=== PATIENT | female | born 1935 | race Caucasian/White ===

== ENCOUNTER → 2016-05-30 | Outpatient (CLI) | payer MEDICARE ==
[~2016-05-30] MED LIST: AMLO2.5T PO; ASPI-999 PO; CA C1TAB75 PO; FISH1CAP15 PO; LOSA1TAB69 PO
--- NOTE | 2016-05-30 16:38 | Diagnostic Imaging Report ---
INDICATION: Digital mammogram bilateral screening. This study was compared to the prior exams of 05/27/15, 05/20/14 and 03/24/13. At this time, there are no current complaints. The current study was also evaluated with a Computer Aided Detection (CAD) system. FINDINGS: The fibroglandular tissue in both breasts is heterogeneously dense. This does limit the sensitivity of this exam. Overall, there does not appear to have been any significant change when compared to the prior study. No primary or secondary sign of malignancy is noted. IMPRESSION: There is no radiographic evidence for malignancy. ACR BI-RADS Category 1: Negative. Result letter will be mailed to the patient. Note: At least 10% of breast cancer is not imaged by mammography. Dictated by: Dictated on workstation # [id number]
== END ==
LOC: RAD 09:22
PROVIDERS: ATTEND Internal Medicine
DX: Z12.31 Encounter for screening mammogram for malignant neoplasm of breast (principal)

== ENCOUNTER → 2017-06-11 | Outpatient (CLI) | payer MEDICARE ==
[~2017-06-11] MED LIST changes: +LOSA1TAB20 PO; -LOSA1TAB69 PO
--- NOTE | 2017-06-12 08:12 | Diagnostic Imaging Report ---
Digital mammogram bilateral screening This study was compared to the prior exams of 05/30/2016, 05/27/2015, and 05/20/2014. At this time, there are no current complaints. The current study was also evaluated with a Computer Aided Detection (CAD) system. FINDINGS: The fibroglandular tissue in both breasts is heterogeneously dense. This does limit the sensitivity of this exam. Overall, there does not appear to have been any significant change when compared to the prior study. No primary or secondary sign of malignancy is noted. IMPRESSION: There is no radiographic evidence for malignancy. ACR BI-RADS Category 1: Negative. Result letter will be mailed to the patient. Note: At least 10% of breast cancer is not imaged by mammography. Dictated by: Dictated on workstation # [id number]
== END ==
LOC: RAD 10:15
PROVIDERS: ATTEND Nurse Practitioner
DX: Z12.31 Encounter for screening mammogram for malignant neoplasm of breast (principal)
CPT/HCPCS: 77067

== ENCOUNTER → 2017-09-25 | Outpatient (CLI) | payer MEDICARE ==
--- NOTE | 2017-09-25 19:17 | Diagnostic Imaging Report ---
INDICATION: Right knee pain. FINDINGS: Three views of the right knee show mild joint space narrowing in the medial and lateral tibiofemoral joint spaces. Articular surfaces are smooth. There is no fracture or joint effusion. IMPRESSION: Mild joint space narrowing in the medial and lateral tibiofemoral joint spaces. Dictated by: Dictated on workstation # [id number]
== END ==
LOC: RAD 16:38
PROVIDERS: ATTEND Nurse Practitioner
DX: M25.861 Other specified joint disorders, right knee (principal); W19.XXXA Unspecified fall, initial encounter; Y92.009 Unspecified place in unspecified non-institutional (private) residence as the place of occurrence of the external cause
CPT/HCPCS: 73562

== ENCOUNTER → 2018-06-16 | Outpatient (CLI) | payer MEDICARE ==
[~2018-06-16] MED LIST changes: -AMLO2.5T PO; +AMLO2.5T4 PO
--- NOTE | 2018-06-16 13:03 | Diagnostic Imaging Report ---
INDICATION: Routine screening. COMPARISON: 06/11/2017 and 05/30/2016. TECHNIQUE: 2D and 3D bilateral screening mammography was performed with CAD. FINDINGS: Scattered fibroglandular densities are identified bilaterally. The parenchymal pattern is stable. No mass or malignant appearing microcalcifications are seen. The axillae are unremarkable. IMPRESSION: No mammographic features suspicious for malignancy are identified. ACR BI-RADS Category 1: Negative. Result letter will be mailed to the patient. Note: At least 10% of breast cancer is not imaged by mammography. Dictated by: Dictated on workstation # [id number]
== END ==
LOC: RAD 10:12
PROVIDERS: ATTEND Nurse Practitioner
DX: Z12.31 Encounter for screening mammogram for malignant neoplasm of breast (principal)
CPT/HCPCS: 77067

== ENCOUNTER → 2018-09-02 | Outpatient (CLI) | payer MEDICARE ==
--- NOTE | 2018-09-02 12:49 | Diagnostic Imaging Report ---
INDICATION: Painful cough. PA and lateral views of the chest were obtained. Comparison made with prior examination from 07/13/2010. FINDINGS: Heart size is normal. There is a patchy right base infiltrate. There is no pleural effusion or pneumothorax. The mediastinum is unremarkable. IMPRESSION: Patchy right base infiltrate. Early pneumonia cannot be excluded. Recommend clinical correlation and followup radiographs as warranted. Dictated by: Dictated on workstation # [id number]
== END ==
LOC: RAD 10:08
PROVIDERS: ATTEND Physician Assistant
DX: J18.9 Pneumonia, unspecified organism (principal)
CPT/HCPCS: 71046

== ENCOUNTER → 2018-09-08 | Outpatient (CLI) | payer MEDICARE ==
--- NOTE | 2018-09-08 14:12 | Diagnostic Imaging Report ---
INDICATION: RLL PNEUMONIA COMPARISON: 09/02/2018. FINDINGS: Frontal and lateral views of the chest demonstrate normal heart size and pulmonary vascularity. The lungs are hyperinflated, but are otherwise clear today's exam. There are no signs of infiltrate, pleural effusions or pneumothoraces. The visualized osseous structures show no acute abnormalities. IMPRESSION: 1. No acute process. No signs of infiltrates, effusions or pneumothoraces. 2. Background COPD changes. Dictated by: Dictated on workstation # [id number]
== END ==
LOC: RAD 13:16
PROVIDERS: ATTEND Physician Assistant
DX: J18.1 Lobar pneumonia, unspecified organism (principal)
CPT/HCPCS: 71046

== ENCOUNTER → 2018-09-17 | Outpatient (CLI) | payer MEDICARE | LOC: RT 16:22 | PROVIDERS: ATTEND Physician Assistant | DX: J44.9 Chronic obstructive pulmonary disease, unspecified (principal) | CPT/HCPCS: 94060; 94726; 94729 ==

== ENCOUNTER → 2019-06-17 | Outpatient (CLI) | payer MEDICARE ==
--- NOTE | 2019-06-17 11:43 | Diagnostic Imaging Report ---
INDICATION: Screening. The current study was also evaluated with a Computer Aided Detection (CAD) system. 3-D Tomographic imaging was also performed. COMPARISON: Comparison made with prior examinations from 06/16/2018, 06/11/2017, and 05/30/2016. FINDINGS: There are scattered fibroglandular densities bilaterally. There are vascular and benign-type calcifications. There is no new dominant mass, spiculated lesion, or suspicious calcination identified. The skin, nipples, and axillae are unremarkable. IMPRESSION: Benign. ACR BI-RADS Category 2: Benign findings. Result letter will be mailed to the patient. Note: At least 10% of breast cancer is not imaged by mammography. Dictated by: Dictated on workstation # [id number]
== END ==
LOC: RAD 09:32
PROVIDERS: ATTEND Nurse Practitioner
DX: Z12.31 Encounter for screening mammogram for malignant neoplasm of breast (principal)
CPT/HCPCS: 77067

== ENCOUNTER 2020-05-30 11:00 | Outpatient (RCR) | payer MEDICARE | END 2020-08-28 | disposition home or self-care (01) | LOC: CARD 11:00 | PROVIDERS: ATTEND Internal Medicine | DX: R00.2 Palpitations (principal) | CPT/HCPCS: 93225; 93226 ==

== ENCOUNTER → 2020-06-29 | Outpatient (CLI) | payer MEDICARE ==
--- NOTE | 2020-06-29 13:33 | Diagnostic Imaging Report ---
INDICATION: Routine screening. Comparison is made with prior mammogram 06/17/2019 and 06/16/2018. 2-D and 3-D bilateral screening mammography was performed with a Computer Aided Detection (CAD) system. 3-D tomosynthesis was also performed and reviewed. FINDINGS: Both breasts are heterogeneously dense, limiting the sensitivity of mammography. Vascular and benign parenchymal calcifications are again noted. No mass or malignant appearing microcalcifications are seen. Axillae are unremarkable. IMPRESSION: No mammographic features suspicious for malignancy are identified. ACR BI-RADS Category 2: Benign findings. Result letter will be mailed to the patient. Note: At least 10% of breast cancer is not imaged by mammography. Dictated by: Dictated on workstation # [id number]
== END ==
LOC: RAD 10:15
PROVIDERS: ATTEND Internal Medicine
DX: Z12.31 Encounter for screening mammogram for malignant neoplasm of breast (principal)
CPT/HCPCS: 77063; 77067

== ENCOUNTER → 2020-08-08 | Outpatient (CLI) | payer MEDICARE | LOC: CARD 11:23 | PROVIDERS: ATTEND Internal Medicine Cardiovascular Disease | DX: I34.0 Nonrheumatic mitral (valve) insufficiency (principal); I11.9 Hypertensive heart disease without heart failure | CPT/HCPCS: 93306 ==

== ENCOUNTER → 2020-09-12 | Outpatient (CLI) | payer MEDICARE ==
[~2020-09-12] VITALS: Ht 165 cm; Wt 57.0 kg
[~2020-09-12] MED LIST changes: +CATHETER FLUSH 10 ML SYR IV PRN
[2020-09-12 09:19] VITALS: BP 171/67
--- NOTE | 2020-09-12 11:06 | Cardiology Stress Test Report ---
Stress Test Report Date of Procedure/Referring: Date of Procedure: September 12, 2020 PCP Van Berg MD Admitting Physician Evan Degroot MD Indications: HTN Baseline Heart Rate: 58 Baseline Blood Pressure: Blood Pressure Systolic: 171 Blood Pressure Diastolic: 67 Vital Signs Date Time Temp Pulse Resp B/P (MAP) Pulse Ox O2 Delivery O2 Flow Rate FiO2 09/12/20 09:19 67 171/67 (101) Baseline Vital Signs Vital Signs Date Time Temp Pulse Resp B/P (MAP) Pulse Ox O2 Delivery O2 Flow Rate FiO2 09/12/20 09:19 67 171/67 (101) Baseline EKG: Baseline EKG: NSR Summary: After explaining the procedure and details to the patient, she signed the consent and was brought to the stress nuclear laboratory. Patient exercised on standard Jimi protocol, EKG, heart rate and blood pressure were monitored continuously, resting and stress doses of radio tracer were injected, imaging was acquired and reviewed in the short axis, horizontal long axis and vertical long axis views Patient was able to exercise for a total of 4 minutes on Jimi protocol, METs 5.8 Maximum heart rate 119 Maximum blood pressure 182/94 Stress EKG, Minimal nondiagnostic changes Recovery EKG, Return to baseline TID: 1.06 SSS: 2 SDS: 2 EF: 75 Conclusion: 1. Fair exercise tolerance for a total of 4 minutes on standard Jimi protocol, 5.8 METS achieving 87% of maximal expected heart rate 2. Hypertensive response to exercise with peak blood pressure 182/94 3. Minimal nondiagnostic EKG changes with exercise return to baseline during recovery 4. No significant ischemia or infarction on SPECT images 5. Normal left ventricular size, EF 75% VAN BERG MD September 12, 2020 11:06
== END ==
LOC: CARD 07:25
PROVIDERS: ATTEND Internal Medicine Cardiovascular Disease
DX: I10 Essential (primary) hypertension (principal); R00.2 Palpitations
CPT/HCPCS: 78452; 93017; A9502

== ENCOUNTER 2020-09-22 17:43 | Emergency (ER) | payer MEDICARE ==
[~2020-09-22] VITALS: Ht 165 cm; Wt 56.8 kg
[~2020-09-22 17:43] MED LIST changes: -CATHETER FLUSH 10 ML SYR IV PRN
--- NOTE | 2020-09-22 18:16 | ED Neck-Back Pain/Injury ---
General Chief Complaint: Head/Cervical Problems Stated Complaint: PAIN IN NECK Nursing Triage Note: AMB TO ED WITH C/O NECK PAIN SINCE SATURDAY NO INJURY. Nursing Sepsis Screen: No Definite Risk Source of Information: Patient Exam Limitations: No Limitations (VIVIAN LEE MD) History of Present Illness Date Seen by Provider: September 22, 2020 Time Seen by Provider: 17:55 Initial Comments This 85-year-old woman presents to the emergency room with right lateral neck pain that started after gardening. She denies any traumatic injury or strain. She took some Tylenol without much improvement and has tried a heating pad. Pain is exacerbated by movement and palpation. It seems to spasm at times. She denies any paresthesias or weakness of the arms or legs. She denies any bladder control problems. (VIVIAN LEE MD) Allergies and Home Medications Allergies Coded Allergies: No Known Drug Allergies (Unverified , 02/24/10) Home Medications Amlodipine Besylate 2.5 Mg Tablet, 2.5 MG PO DAILY, (Reported) Losartan/Hydrochlorothiazide 1 Each Tablet, 1 EACH PO DAILY, (Reported) Patient Home Medication List Home Medication List Reviewed: Yes (VIVIAN LEE MD) Review of Systems Constitutional: no symptoms reported EENTM: no symptoms reported Respiratory: no symptoms reported Cardiovascular: no symptoms reported Gastrointestinal: no symptoms reported Genitourinary: no symptoms reported : No Musculoskeletal: see HPI Skin: no symptoms reported Psychiatric/Neurological: No Symptoms Reported (VIVIAN LEE MD) Past Gpqtsel-Mzafts-Anybgs Hx Past Med/Social Hx: Reviewed and Corrections made (VIVIAN LEE MD) Patient Social History Alcohol Use: Denies Use Number of Drinks Today: Alcohol Beverage of Choice: Wine Smoking Status: Never a Smoker 2nd Hand Smoke Exposure: No Recent Infectious Disease Expo: No Recent Hopitalizations: No (VIVIAN LEE MD) Immunizations Up To Date Tetanus Booster (TDap): More than 5yrs Date of Pneumonia Vaccine: Jan 10, 2012 (VIVIAN LEE MD) Seasonal Allergies Seasonal Allergies: No (VIVIAN LEE MD) Past Medical History Surgeries: Yes Hysterectomy Respiratory: No Cardiac: Yes Hypertension Neurological: No Reproductive Disorders: No Genitourinary: No Gastrointestinal: No Musculoskeletal: No Endocrine: No HEENT: No Cancer: No Psychosocial: No (VIVIAN LEE MD) Physical Exam Vital Signs Vital Signs - First Documented 09/22/20 17:47 Temp 36.1 Pulse 67 Resp 18 B/P (MAP) 173/79 (110) Pulse Ox 97 (RUPESH LAWRENCE) Vital Signs Capillary Refill : Less Than 3 Seconds (VIVIAN LEE MD) Height, Weight, BMI Height: 5'5.00" Weight: 130lbs. oz. 58.676436wa; 20.00 BMI Method:Stated General Appearance: No Apparent Distress, WD/WN, Thin HEENT: PERRL/EOMI, Normal ENT Inspection Neck: Normal Inspection, Tender Lateral (Tender in the mid lateral neck just posterior to the sternocleidomastoid muscle. No cervical spinal tenderness. Decreased range of motion and pain with rotation.) Cardiovascular: No Murmur, Normal Peripheral Pulses, Other (Irregularly irregular, bigeminy on the monitor) Respiratory: Lungs Clear, Normal Breath Sounds, No Accessory Muscle Use Extremity: Normal Inspection, No Pedal Edema Neurologic/Psychiatric: Alert, Oriented x3, No Motor/Sensory Deficits, Normal Mood/Affect, rnp II-XII Norm as Tested Skin: Normal Color, Warm/Dry (VIVIAN LEE MD) Progress/Results/Core Measures Results/Orders Medications Given in ED Current Medications Medications Dose Ordered Sig/Steff Route Start Time Stop Time Status Last Admin Dose Admin Ketorolac Tromethamine 15 mg ONCE ONCE IM 09/22/20 18:15 09/22/20 18:16 DC 09/22/20 18:33 15 MG Orphenadrine Citrate 30 mg ONCE ONCE IM 09/22/20 18:15 09/22/20 18:16 DC 09/22/20 18:33 30 MG (RUPESH LAWRENCE) Vital Signs/I&O 09/22/20 17:47 Temp 36.1 Pulse 67 Resp 18 B/P (MAP) 173/79 (110) Pulse Ox 97 (RUPESH LAWRENCE) Blood Pressure Mean: 110 Progress Progress Note : Time: 18:15 Progress Note Patient seen and examined. Toradol and Norflex ordered. Care transition to Dr. Lawrence at this time. (VIVIAN LEE MD) Progress Note : Time: 18:57 Progress Note Assumed care of the patient at shift change. She has received her dose of Toradol and Norflex and is having some improvement in her symptoms. We did prescribe a conservative care treatment plan for torticollis as well as return precautions and encouraged her to follow-up in 7 to 10 days with her primary care doctor for reevaluation. We will give her number for physical therapy. (RUPESH LAWRENCE) Departure Impression Primary Impression: Neck pain Disposition: 01 HOME, SELF-CARE Condition: Stable Departure-Patient Inst. Decision time for Depature: 18:57 (RUPESH LAWRENCE) Referrals: CAREY DORANTES MD (PCP/Family) Primary Care Physician Patient Instructions: Neck Pain Exercises, Torticollis (DC) Add. Discharge Instructions: I suspect that you have muscle spasms of the small muscles that support your neck and that is the source of your pain. Typically this will resolve in 1 to 2 weeks with some conservative management using Tylenol, NSAIDs and muscle relaxants as well as heat. Make an appointment in 7 to 10 days to follow-up with your primary care doctor to make sure your symptoms are improving. If you feel you need some extra help then you may call physical therapy at [phone] and request a no upfront cost evaluation. Use topical creams such as icy hot, Biofreeze, capsaicin oil or other similar creams as well as a heating pad to provide relief of the pain in your neck. Tylenol 1000 mg every 8 hours as necessary for pain. Ibuprofen 600 mg, 3 tablets every 8 hours on a scheduled basis or you can use naproxen/Aleve 2 tablets twice a day on a scheduled basis. Flexeril/cyclobenzaprine 1/2 to 1 tablet every 8 hours as necessary to relieve muscle spasms. This may cause drowsiness so you should not drive or operate heavy machinery while using it. If you begin to have new or worrisome symptoms then you may return to the ER or follow-up with your primary care doctor for further evaluation. All discharge instructions reviewed with patient and/or family. Voiced understanding. Scripts Cyclobenzaprine HCl (Cyclobenzaprine HCl) 10 Mg Tablet 5-10 MG PO Q8H PRN for SPASMS, #15 TAB 0 Refills Prov: RUPESH LAWRENCE 09/22/20 VIVIAN LEE MD September 22, 2020 18:16 RUPESH LAWRENCE September 22, 2020 19:01
[2020-09-22] MEDS: ORPHENADRINE 60 MG/2 ML (NORFLEX) AMP (ED ONLY) IM ONE (18:33)
[2020-09-22] MEDS: KETOROLAC 30 MG/ML VIAL IM ONE (18:33)
[2020-09-22] MEDS ORDERED: CYCL10TA9 PO (19:00)
[2020-09-22 19:01] VITALS: BP 156/74
== END 2020-09-22 19:03 | disposition home or self-care (01) ==
LOC: EDUNIT# 17:43 → ER 17:45
DX: M54.2 Cervicalgia (principal); I10 Essential (primary) hypertension
CPT/HCPCS: 99284

== ENCOUNTER → 2021-08-02 | Outpatient (CLI) | payer MEDICARE, OTHER ==
[~2021-08-02] MED LIST changes: +CYCL10TA25 PO
--- NOTE | 2021-08-02 12:19 | Diagnostic Imaging Report ---
INDICATION: Routine screening. COMPARISON: 06/29/2020 and 06/17/2019. TECHNIQUE: 2D and 3D bilateral screening mammography was performed with CAD. FINDINGS: Both breasts are heterogeneously dense, limiting the sensitivity of mammography. The parenchymal pattern is stable. No dominant mass or malignant-appearing microcalcifications are seen. There are benign parenchymal and vascular calcifications. The axillae are unremarkable. IMPRESSION: No mammographic features suspicious for malignancy are identified. ACR BI-RADS Category 2: Benign findings. Result letter will be mailed to the patient. Note: At least 10% of breast cancer is not imaged by mammography. Dictated by: Dictated on workstation # [id number]
== END ==
LOC: RAD 10:00
PROVIDERS: ATTEND Nurse Practitioner Family
DX: Z12.31 Encounter for screening mammogram for malignant neoplasm of breast (principal)
CPT/HCPCS: 77063; 77067

== ENCOUNTER 2021-10-15 09:17 | Emergency (ER) | payer MEDICARE, OTHER ==
[~2021-10-15] VITALS: Ht 165 cm; Wt 52.1 kg
[2021-10-15 10:02] LABS: CLARITY,URINE CLEAR; COLOR,URINE YELLOW; GLUCOSE, URINE (UA) NEGATIVE (NEGATIVE); KETONES,URINE TRACE (NEGATIVE); LEUKOCYTE ESTERASE ,URINE TRACE (NEGATIVE); NITRITE,URINE NEGATIVE (NEGATIVE); PH,URINE 5.5 (5-9); PROTEIN,URINE 1+ (NEGATIVE)
[2021-10-15] MEDS ORDERED: NS IV 500 ML 500 ML IV ONE (10:15)
--- NOTE | 2021-10-15 10:24 | ED GI ---
General Chief Complaint: Abdominal/GI Problems Stated Complaint: DIARRHEA - ABD PAIN - UNABLE TO SLEEP OR EAT Nursing Triage Note: pt ambulatory to room. pt states she has had diarrhea and stomach cramping since saturday morning. pt states she hasnt been eating much because she has to go straight to the bathroom afterward. pt states she feels like she has food poisoning because this started after she ate fish at the [employer] Source of Information: Patient Exam Limitations: No Limitations History of Present Illness Date Seen by Provider: Oct 15, 2021 Time Seen by Provider: 09:57 Initial Comments Patient to the ER by private conveyance with his significant other chief complaint that for the past 2-3 days she has been having diarrhea since the wee hours of Saturday morning. No blood in the stool. No history of diverticulitis. No history of abdominal surgeries. No abdominal pain nausea vomiting fevers or chills. No myalgias or body aches. She says she ate fish at the [employer] on and then her symptoms started. Has been using Pepto-Bismol and put off coming in because she thought it was getting better. Today she had no appetite, and felt she better come in to be checked out. Allergies and Home Medications Allergies Coded Allergies: No Known Drug Allergies (Unverified , 02/24/10) Patient Home Medication List Home Medication List Reviewed: Yes Amlodipine Besylate (Amlodipine Besylate) 2.5 Mg Tablet, 2.5 MG PO DAILY, (Reported) Entered as Reported by: DEREK VINCENT on 01/18/15901 Aspirin (Aspirin) 81 Mg Tab.chew, 81 MG PO, (Reported) Entered as Reported by: DEREK VINCENT on 01/18/15902 Ca Carbonate/Vitamin D3/Vit K (Calcium + D Soft Chewable Tab) 1 Each Tab.chew, 1 EACH PO, (Reported) Entered as Reported by: DEREK VINCENT on 01/18/15 09 Cyclobenzaprine HCl (Cyclobenzaprine HCl) 10 Mg Tablet, 5-10 MG PO Q8H PRN for SPASMS Prescribed by: RUPESH NEWTON on 09/22/20 1900 Fish Oil/Dha/Epa (Fish Oil 1,200 mg Fish Oil) 1 Each Capsule, 1 EACH PO, (Reported) Entered as Reported by: DEREK VINCENT on 01/18/15902 Losartan/Hydrochlorothiazide (Losartan-Hctz 50-12.5 mg Tab) 1 Each Tablet, 1 EACH PO DAILY, (Reported) Entered as Reported by: DEREK VINCENT on 01/18/15900 Review of Systems Review of Systems Constitutional: No chills, No fever, No malaise; weakness EENTM: No Blurred Vision, No Double Vision Respiratory: Denies Cough, Denies Shortness of Air Cardiovascular: Denies Chest Pain, Denies Lightheadedness Gastrointestinal: Denies Constipated; Diarrhea; Denies Nausea; Poor Appetite, Poor Fluid Intake Genitourinary: Denies Discharge, Denies Drainage Musculoskeletal: No back pain, No joint pain Skin: No pruritus, No rash Psychiatric/Neurological: Denies Headache, Denies Numbness All Other Systems Reviewed Negative Unless Noted: Yes Past Tbyvghl-Twrvne-Oughfq Hx Patient Social History Tobacco Use?: No Use of E-Cig and/or Vaping dev: No Substance use?: No Immunizations Up To Date Tetanus Booster (TDap): More than 5yrs Seasonal Allergies Seasonal Allergies: No Past Medical History Surgeries: Yes Hysterectomy Respiratory: No Cardiac: Yes Hypertension Neurological: No Reproductive Disorders: No Genitourinary: No Gastrointestinal: No Musculoskeletal: No Endocrine: No HEENT: No Cancer: No Psychosocial: No Physical Exam Vital Signs Vital Signs - First Documented 10/15/21 09:44 Temp 35.8 Pulse 59 Resp 16 B/P (MAP) 152/72 (98) Pulse Ox 97 Capillary Refill : Height/Weight/BMI Height: 5'5.00" Weight: 130lbs. oz. 58.753561hq; 19.00 BMI Method:Stated General Appearance: WD/WN, no apparent distress HEENT: PERRL/EOMI, pharynx normal Neck: full range of motion, normal inspection Respiratory: lungs clear, normal breath sounds, no respiratory distress, no accessory muscle use Cardiovascular: normal peripheral pulses, regular rate, rhythm Peripheral Pulses: 2+ Radial Pulses (R), 2+ Radial Pulses (L) Gastrointestinal: non tender, soft, no organomegaly, abnormal bowel sounds (Hyperactive); No tenderness (No mesenteric signs, soft) Extremities: normal range of motion, normal capillary refill Neurologic/Psychiatric: alert, normal mood/affect, oriented x 3 Skin: normal color, warm/dry Progress/Results/Core Measures Results/Orders Lab Results Laboratory Tests Test 10/15/21 09:57 10/15/21 10:15 Range/Units Urine Color YELLOW Urine Clarity CLEAR Urine pH 5.5 5-9 Urine Specific [place] 1.025 H 1.016-1.022 Urine Protein 1+ H NEGATIVE Urine Glucose (UA) NEGATIVE NEGATIVE Urine Ketones TRACE H NEGATIVE Urine Nitrite NEGATIVE NEGATIVE Urine Bilirubin NEGATIVE NEGATIVE Urine Urobilinogen 0.2 < = 1.0 MG/DL Urine Leukocyte Esterase TRACE H NEGATIVE Urine RBC (Auto) TRACE-I H NEGATIVE Urine RBC 0-2 /HPF Urine WBC 2-5 /HPF Urine Crystals NONE /LPF Urine Bacteria FEW H /HPF Urine Casts PRESENT /LPF Urine Hyaline Casts 0-2 H /LPF Urine Mucus SMALL H /LPF Urine Culture Indicated YES White Blood Count 6.2 4.3-11.0 10^3/uL Red Blood Count 4.52 3.80-5.11 10^6/uL Hemoglobin 13.6 11.5-16.0 g/dL Hematocrit 41 35-52 % Mean Corpuscular Volume 91 80-99 fL Mean Corpuscular Hemoglobin 30 25-34 pg Mean Corpuscular Hemoglobin Concent 33 32-36 g/dL Red Cell Distribution Width 13.5 10.0-14.5 % Platelet Count 301 130-400 10^3/uL Mean Platelet Volume 10.5 9.0-12.2 fL Immature Granulocyte % (Auto) 0 % Neutrophils (%) (Auto) 55 42-75 % Lymphocytes (%) (Auto) 30 12-44 % Monocytes (%) (Auto) 13 H 0-12 % Eosinophils (%) (Auto) 2 0-10 % Basophils (%) (Auto) 0 0-10 % Neutrophils # (Auto) 3.5 1.8-7.8 10^3/uL Lymphocytes # (Auto) 1.9 1.0-4.0 10^3/uL Monocytes # (Auto) 0.8 0.0-1.0 10^3/uL Eosinophils # (Auto) 0.1 0.0-0.3 10^3/uL Basophils # (Auto) 0.0 0.0-0.1 10^3/uL Immature Granulocyte # (Auto) 0.0 0.0-0.1 10^3/uL Sodium Level 138 135-145 MMOL/L Potassium Level 3.6 3.6-5.0 MMOL/L Chloride Level 103 98-107 MMOL/L Carbon Dioxide Level 25 21-32 MMOL/L Anion Gap 10 5-14 MMOL/L Blood Urea Nitrogen 19 H 7-18 MG/DL Creatinine 1.05 0.60-1.30 MG/DL Estimat Glomerular Filtration Rate 52 BUN/Creatinine Ratio 18 Glucose Level 118 H 70-105 MG/DL Calcium Level 9.3 8.5-10.1 MG/DL Corrected Calcium 9.5 8.5-10.1 MG/DL Total Bilirubin 0.3 0.1-1.0 MG/DL Aspartate Amino Transf (AST/SGOT) 31 5-34 U/L Alanine Aminotransferase (ALT/SGPT) 21 0-55 U/L Alkaline Phosphatase 83 40-136 U/L C-Reactive Protein High Sensitivity 0.51 H 0.00-0.50 MG/DL Total Protein 7.1 6.4-8.2 GM/DL Albumin 3.7 3.2-4.5 GM/DL SARS-CoV-2 RNA (RT-PCR) Not Detected Not Detecte My Orders Orders - RUPESH NEWTON Ua Culture If Indicated (10/15/21 09:21) Ed Iv/Invasive Line Start (10/15/21 10:06) Ns Iv 500 Ml (Sodium Chloride 0.9%) (10/15/21 10:15) Cbc With Automated Diff (10/15/21 10:06) Comprehensive Metabolic Panel (10/15/21 10:06) Hs C Reactive Protein (10/15/21 10:06) Covid 19 Inhouse Test (10/15/21 10:16) Ct Abdomen/Pelvis Wo (10/15/21 10:17) Urine Culture (10/15/21 09:57) Medications Given in ED Current Medications Medications Dose Ordered Sig/Steff Route Start Time Stop Time Status Last Admin Dose Admin Sodium Chloride 500 ml @ 0 mls/hr Q0M ONCE IV 10/15/21 10:15 10/15/21 10:16 DC 10/15/21 10:16 0 MLS/HR Vital Signs/I&O 10/15/21 09:44 Temp 35.8 Pulse 59 Resp 16 B/P (MAP) 152/72 (98) Pulse Ox 97 Blood Pressure Mean: 98 Progress Progress Note : Time: 10:23 Progress Note We will swab her for COVID think about a viral gastroenteritis versus toxin. To consider other differentials we will get a CT. Because of the contrast shortage and her relative apparent dehydration we will hold off on any contrast. We will give her 500 cc normal saline bolus. We will check basic labs. Aseptic vital signs with a nonsurgical abdomen. Diagnostic Imaging Diagonstic Imaging: CT Plain Films/CT/US/NM/MRI: abdomen, pelvis Comments [facility] [place], [place] NAME: IRINA HAQ [facility] REC#: [id number] PT STATUS: REG ER : 1935 PHYSICIAN: RUPESH NEWTON MD ADMIT DATE: 10/15/21/ER Signed Date of Exam:10/15/21 CT ABDOMEN/PELVIS WO PROCEDURE: CT abdomen and pelvis without contrast. TECHNIQUE: Multiple contiguous axial images were obtained through the abdomen and pelvis without the use of intravenous contrast. Auto Exposure Controls were utilized during the CT exam to meet ALARA standards for radiation dose reduction. DATE: October 15, 2021. COMPARISON: None. INDICATION: 86-year-old female, diarrhea. Abdominal pain. FINDINGS: There are limitations for evaluation of the abdominal organs, neoplastic processes, abscess, and limited evaluation of the vasculature relating to the lack of intravenous contrast. There are predominantly linear opacities in the right middle lobe, right lower lobe, and left lower lobe most compatible with scarring and/or atelectasis. The heart is not enlarged. There is no pericardial effusion. The liver is unremarkable in size and contour. The gallbladder is unremarkable. There is no intrahepatic or extrahepatic bile duct dilation. The main pancreatic duct is not abnormally dilated. Limited noncontrast assessment of the pancreatic parenchyma is unremarkable. Spleen is normal in size. The adrenal glands are unremarkable. Limited noncontrast assessment of the renal parenchyma is unremarkable. There is no identified renal or ureteral stone. The urinary bladder is unremarkable. The intestinal tract is not distended. There is no identified free intraperitoneal air. There is no drainable fluid collection. There is no sizable volume free fluid in the abdomen or pelvis. There are atherosclerotic calcifications. There is no identified abnormally enlarged lymph node in the abdomen or pelvis meeting CT size criteria for adenopathy. There is chondrocalcinosis. There are multilevel degenerative changes of the spine. There is scoliosis. There is a lucent lesion in the L2 vertebral body most likely reflecting a hemangioma. IMPRESSION: CT ABDOMEN AND PELVIS. 1. No identified acute abnormality in the abdomen or pelvis. Dictated by: Dictated on workstation # [id number] Dict: 10/15/21 1140 Trans: 10/15/21 1151 [facility] [id number] Interpreted by: PATRICIA WARD MD Electronically signed by: PATRICIA WARD MD 10/15/21 1151 Reviewed: Reviewed by Me Departure Impression Primary Impression: Gastroenteritis/colitis, infectious Disposition: 01 HOME, SELF-CARE Condition: Improved Departure-Patient Inst. Decision time for Depature: 12:38 Referrals: CAREY DORANTES MD (PCP/Family) Primary Care Physician Patient Instructions: Viral Gastroenteritis, Adult (DC), Diarrhea, Adult ED Add. Discharge Instructions: If you continue to have loose, watery stools then use Imodium/loperamide. Loperamide 2 tablets, 4 mg initially followed by 1 tablet every 4 hours afterwards that you are still having loose, watery stools. Ondansetron 1 tablet every 6 hours as needed for nausea or vomiting. Gas-X for bloating or cramping pain. Follow-up with your primary care doctor if this has not resolved in 10 days. Return to the ER for dehydration, intractable pain, or other worrisome symptoms. All discharge instructions reviewed with patient and/or family. Voiced understanding. Scripts Ondansetron (Ondansetron Odt) 4 Mg Tab.rapdis 4 MG PO Q6H PRN for NAUSEA/VOMITING, #8 TAB 0 Refills Prov: RUPESH NEWTON 10/15/21 RUPESH NEWTON Oct 15, 2021 10:24
[2021-10-15 10:27] LABS: BASOPHILS % (AUTO) 0 % (0-10); EOSINOPHILS # (AUTO) 0.1 10^3/uL (0.0-0.3); EOSINOPHILS % (AUTO) 2 % (0-10); HEMATOCRIT 41 % (35-52); HEMOGLOBIN 13.6 g/dL (11.5-16.0); LYMPHOCYTES # (AUTO) 1.9 10^3/uL (1.0-4.0); LYMPHOCYTES % (AUTO) 30 % (12-44); MEAN CORPUSCULAR HEMOGLOBIN 30 pg (25-34); MEAN CORPUSCULAR HGB CONC 33 g/dL (32-36); MEAN CORPUSCULAR VOLUME 91 fL (80-99); MEAN PLATELET VOLUME 10.5 fL (9.0-12.2); MONOCYTES # (AUTO) 0.8 10^3/uL (0.0-1.0); MONOCYTES % (AUTO) 13 % (0-12); NEUTROPHILS # (AUTO) 3.5 10^3/uL (1.8-7.8); NEUTROPHILS % (AUTO) 55 % (42-75); PLATELET COUNT 301 10^3/uL (130-400); WHITE BLOOD COUNT 6.2 10^3/uL (4.3-11.0)
[2021-10-15 10:28] LABS: BACTERIA,URINE FEW /HPF; BILIRUBIN,URINE NEGATIVE (NEGATIVE); HYALINE CASTS, URINE 0-2 /LPF; RBC,URINE 0-2 /HPF
[2021-10-15 10:44] LABS: ALBUMIN 3.7 GM/DL (3.2-4.5); POTASSIUM 3.6 MMOL/L (3.6-5.0)
[2021-10-15 10:45] LABS: CALCIUM 9.3 MG/DL (8.5-10.1)
[2021-10-15 10:46] LABS: TOTAL PROTEIN 7.1 GM/DL (6.4-8.2)
[2021-10-15 10:48] LABS: BILIRUBIN,TOTAL 0.3 MG/DL (0.1-1.0)
[2021-10-15 10:50] LABS: CREATININE SERUM 1.05 MG/DL (0.60-1.30)
--- NOTE | 2021-10-15 11:49 | Diagnostic Imaging Report ---
PROCEDURE: CT abdomen and pelvis without contrast. TECHNIQUE: Multiple contiguous axial images were obtained through the abdomen and pelvis without the use of intravenous contrast. Auto Exposure Controls were utilized during the CT exam to meet ALARA standards for radiation dose reduction. DATE: October 15, 2021. COMPARISON: None. INDICATION: 86-year-old female, diarrhea. Abdominal pain. FINDINGS: There are limitations for evaluation of the abdominal organs, neoplastic processes, abscess, and limited evaluation of the vasculature relating to the lack of intravenous contrast. There are predominantly linear opacities in the right middle lobe, right lower lobe, and left lower lobe most compatible with scarring and/or atelectasis. The heart is not enlarged. There is no pericardial effusion. The liver is unremarkable in size and contour. The gallbladder is unremarkable. There is no intrahepatic or extrahepatic bile duct dilation. The main pancreatic duct is not abnormally dilated. Limited noncontrast assessment of the pancreatic parenchyma is unremarkable. Spleen is normal in size. The adrenal glands are unremarkable. Limited noncontrast assessment of the renal parenchyma is unremarkable. There is no identified renal or ureteral stone. The urinary bladder is unremarkable. The intestinal tract is not distended. There is no identified free intraperitoneal air. There is no drainable fluid collection. There is no sizable volume free fluid in the abdomen or pelvis. There are atherosclerotic calcifications. There is no identified abnormally enlarged lymph node in the abdomen or pelvis meeting CT size criteria for adenopathy. There is chondrocalcinosis. There are multilevel degenerative changes of the spine. There is scoliosis. There is a lucent lesion in the L2 vertebral body most likely reflecting a hemangioma. IMPRESSION: CT ABDOMEN AND PELVIS. 1. No identified acute abnormality in the abdomen or pelvis. Dictated by: Dictated on workstation # [id number]
[2021-10-15 11:58] VITALS: BP 137/76
[2021-10-15] MEDS ORDERED: ONDA4TAB11 PO (12:40)
== END 2021-10-15 12:51 | disposition home or self-care (01) ==
LOC: EDUNIT# 09:17 → ER 09:18
DX: A09 Infectious gastroenteritis and colitis, unspecified (principal); Z20.822 Contact with and (suspected) exposure to COVID-19
CPT/HCPCS: 36415; 74176; 80053; 81000; 85025; 86141; 87088; 87636

== ENCOUNTER → 2022-08-06 | Outpatient (CLI) | payer MEDICARE, OTHER ==
[~2022-08-06] MED LIST changes: +ONDA4TAB11 PO
--- NOTE | 2022-08-06 15:36 | Diagnostic Imaging Report ---
EXAMINATION: 3D bilateral screening mammogram with CAD. INDICATION: Screening. COMPARISON: This study was compared to the prior exams of 08/02/2021, 06/29/2020, and 06/17/2019. PERSONAL HISTORY: At this time, there are no current complaints. FINDINGS: The fibroglandular tissue in both breasts is heterogeneously dense. This does limit the sensitivity of this exam. When compared to the previous study, there does not appear to have been any significant change. There is no primary or secondary sign of malignancy noted. IMPRESSION: There is no evidence for malignancy. ACR BI-RADS Category 1: Negative. Result letter will be mailed to the patient. Note: At least 10% of breast cancer is not imaged by mammography. Dictated by: Dictated on workstation # [id number]
== END ==
LOC: RAD 10:49
PROVIDERS: ATTEND Physician Assistant
DX: Z12.31 Encounter for screening mammogram for malignant neoplasm of breast (principal)
CPT/HCPCS: 77063; 77067

== ENCOUNTER → 2022-08-10 | Outpatient (CLI) | payer MEDICARE, OTHER ==
[2022-08-10 10:16] LABS: BASOPHILS # (AUTO) 0.1 10^3/uL (0.0-0.1); BASOPHILS % (AUTO) 1 % (0-10); EOSINOPHILS # (AUTO) 0.2 10^3/uL (0.0-0.3); EOSINOPHILS % (AUTO) 2 % (0-10); HEMATOCRIT 38 % (35-52); HEMOGLOBIN 12.7 g/dL (11.5-16.0); LYMPHOCYTES # (AUTO) 2.5 10^3/uL (1.0-4.0); LYMPHOCYTES % (AUTO) 33 % (12-44); MEAN CORPUSCULAR HEMOGLOBIN 30 pg (25-34); MEAN CORPUSCULAR HGB CONC 34 g/dL (32-36); MEAN CORPUSCULAR VOLUME 90 fL (80-99); MEAN PLATELET VOLUME 10.3 fL (9.0-12.2); MONOCYTES # (AUTO) 0.7 10^3/uL (0.0-1.0); MONOCYTES % (AUTO) 10 % (0-12); NEUTROPHILS # (AUTO) 4.1 10^3/uL (1.8-7.8); NEUTROPHILS % (AUTO) 54 % (42-75); PLATELET COUNT 261 10^3/uL (130-400); WHITE BLOOD COUNT 7.5 10^3/uL (4.3-11.0)
[2022-08-10 10:24] LABS: ALBUMIN 3.9 GM/DL (3.2-4.5); POTASSIUM 3.7 MMOL/L (3.6-5.0)
[2022-08-10 10:27] LABS: TOTAL PROTEIN 7.3 GM/DL (6.4-8.2)
[2022-08-10 10:28] LABS: BILIRUBIN,TOTAL 0.6 MG/DL (0.1-1.0)
[2022-08-10 10:30] LABS: CREATININE SERUM 1.13 MG/DL (0.60-1.30)
== END ==
LOC: LAB 10:03
PROVIDERS: ATTEND Internal Medicine
DX: Z00.00 Encounter for general adult medical examination without abnormal findings (principal); E78.2 Mixed hyperlipidemia; I10 Essential (primary) hypertension
CPT/HCPCS: 36415; 80053; 80061; 84443; 85025

== ENCOUNTER → 2022-08-16 | Outpatient (CLI) | payer MEDICARE, OTHER ==
[2022-08-16 11:21] LABS: ABSOLUTE RETIC # 66 10e9/uL (24-90); BASOPHILS # (AUTO) 0.1 10^3/uL (0.0-0.1); BASOPHILS % (AUTO) 1 % (0-10); EOSINOPHILS # (AUTO) 0.2 10^3/uL (0.0-0.3); EOSINOPHILS % (AUTO) 2 % (0-10); HEMATOCRIT 39 % (35-52); HEMOGLOBIN 12.8 g/dL (11.5-16.0); LYMPHOCYTES % (AUTO) 32 % (12-44); MEAN CORPUSCULAR HEMOGLOBIN 30 pg (25-34); MEAN CORPUSCULAR HGB CONC 33 g/dL (32-36); MEAN CORPUSCULAR VOLUME 91 fL (80-99); MEAN PLATELET VOLUME 10.2 fL (9.0-12.2); MONOCYTES % (AUTO) 10 % (0-12); NEUTROPHILS # (AUTO) 5.3 10^3/uL (1.8-7.8); NEUTROPHILS % (AUTO) 55 % (42-75); PLATELET COUNT 273 10^3/uL (130-400); RETICULOCYTE % 1.55 % (0.50-2.40); WHITE BLOOD COUNT 9.6 10^3/uL (4.3-11.0)
[2022-08-16 12:34] LABS: EOSINOPHILS % (MANUAL) 3 %; LYMPHOCYTES % (MANUAL) 23 %; MONOCYTES % (MANUAL) 9 %; NEUTROPHILS % (MANUAL) 60 %; RBC MORPH NORMAL; REACTIVE LYMPHOCYTES 5 %
== END ==
LOC: LAB 11:04
PROVIDERS: ATTEND Internal Medicine
DX: Z00.00 Encounter for general adult medical examination without abnormal findings (principal); E78.2 Mixed hyperlipidemia; I10 Essential (primary) hypertension
CPT/HCPCS: 36415; 85007; 85027; 85045; 85055

== ENCOUNTER → 2022-11-20 | Outpatient (CLI) | payer MEDICARE, OTHER ==
--- NOTE | 2022-11-20 11:52 | Diagnostic Imaging Report ---
Indication: Bronchitis Study compared 09/08/2018 FINDINGS: Symmetrical pulmonary hyperexpansion with air trapping flattening of the diaphragms and expansion the retrosternal airspace is a progressive finding. There is some perihilar interstitial opacities likely owing to atelectatic thickened central airways and bronchiectasis. Some increased somewhat nodular patchy interstitial opacities bilaterally suspect for a infectious disease superimposed but warranting radiographic follow-up given the change. The heart size is normal. There is no effusion or pneumothorax. IMPRESSION: Likely progressive obstructive lung disease with increased bronchiectasis thickening of the central airways and likely multifocal nodular infectious infiltrates radiographic follow-up recommended. No pleural pathology or failure pattern. Dictated by: Dictated on workstation # [id number]
== END ==
LOC: RAD 10:46
PROVIDERS: ATTEND Internal Medicine
DX: J40 Bronchitis, not specified as acute or chronic (principal)
CPT/HCPCS: 71046

== ENCOUNTER → 2022-12-07 | Outpatient (CLI) | payer MEDICARE, OTHER ==
[2022-12-07 09:34] LABS: BASOPHILS # (AUTO) 0.1 10^3/uL (0.0-0.1); BASOPHILS % (AUTO) 1 % (0-10); EOSINOPHILS # (AUTO) 0.3 10^3/uL (0.0-0.3); EOSINOPHILS % (AUTO) 4 % (0-10); HEMATOCRIT 40 % (35-52); HEMOGLOBIN 13.4 g/dL (11.5-16.0); LYMPHOCYTES # (AUTO) 2.7 10^3/uL (1.0-4.0); LYMPHOCYTES % (AUTO) 35 % (12-44); MEAN CORPUSCULAR HEMOGLOBIN 30 pg (25-34); MEAN CORPUSCULAR HGB CONC 33 g/dL (32-36); MEAN CORPUSCULAR VOLUME 90 fL (80-99); MEAN PLATELET VOLUME 10.4 fL (9.0-12.2); MONOCYTES # (AUTO) 0.9 10^3/uL (0.0-1.0); MONOCYTES % (AUTO) 12 % (0-12); NEUTROPHILS # (AUTO) 3.7 10^3/uL (1.8-7.8); NEUTROPHILS % (AUTO) 49 % (42-75); PLATELET COUNT 318 10^3/uL (130-400); WHITE BLOOD COUNT 7.7 10^3/uL (4.3-11.0)
[2022-12-07 09:45] LABS: POTASSIUM 3.9 MMOL/L (3.6-5.0)
[2022-12-07 09:46] LABS: CALCIUM 9.4 MG/DL (8.5-10.1)
[2022-12-07 09:48] LABS: TOTAL PROTEIN 7.8 GM/DL (6.4-8.2)
[2022-12-07 09:49] LABS: BILIRUBIN,TOTAL 0.4 MG/DL (0.1-1.0)
[2022-12-07 09:51] LABS: CREATININE SERUM 1.03 MG/DL (0.60-1.30)
[2022-12-07 10:09] LABS: ERYTHROCYTE SEDIMENTATION RATE 31 MM/HR (0-30)
== END ==
LOC: LAB 09:19
PROVIDERS: ATTEND Internal Medicine
DX: I12.9 Hypertensive chronic kidney disease with stage 1 through stage 4 chronic kidney disease, or unspecified chronic kidney disease (principal); N18.31 Chronic kidney disease, stage 3a; J47.9 Bronchiectasis, uncomplicated; R63.4 Abnormal weight loss
CPT/HCPCS: 36415; 80053; 84443; 85025; 85652

== ENCOUNTER → 2022-12-17 | Outpatient (CLI) | payer MEDICARE, OTHER ==
[~2022-12-17] MED LIST changes: +CATHETER FLUSH 10 ML SYR IV PRN; +HOLD METFORMIN - RECEIVED CONTRAST 20 ML VIAL IV SCH; +IOHEXOL 350 MG/ML 100 ML (OMNIPAQUE 350) VIAL IV ONE; +NS 100 ML (IVPB) BAG IV ONE
--- NOTE | 2022-12-17 13:53 | Diagnostic Imaging Report ---
EXAMINATION: CT chest with intravenous contrast. TECHNIQUE: Multiple contiguous axial images were obtained through the chest after the uneventful administration of intravenous contrast. All CT scans use one or more of the following dose optimizing techniques: automated exposure control, MA and/or KvP adjustment based on patient size and exam type or iterative reconstruction. HISTORY: Abnormal weight loss. COMPARISON: Chest radiograph on 11/20/2022. FINDINGS: The heart size is within normal limits. No pericardial effusion is present. There is calcified aortic and coronary atherosclerotic plaque without aneurysm. There is no mediastinal, hilar, or axillary lymphadenopathy. Mild bronchiectasis is seen in the lung bases with scattered areas of mucous plugging. Scattered tree-in-bud opacities are seen throughout the lungs. A nodule seen in the right upper lobe measuring 0.5 cm. Biapical scarring is seen. No central endobronchial obstructing lesion. There is no pleural effusion or pneumothorax. The osseous structures demonstrate no acute abnormalities. Limited views of the upper abdominal structures demonstrate no acute abnormalities. Both adrenal glands are unremarkable. IMPRESSION: 1. Findings suggestive of bronchitis/bronchiolitis with scattered tree-in-bud opacities and bronchiectasis with mucus plugging. No focal consolidations or pleural effusions. 2. Discrete nodule in the right upper lobe measuring 0.5 cm. Consider followup in 6-[address] Dictated by: Dictated on workstation # [id number]
== END ==
LOC: RAD 09:04
PROVIDERS: ATTEND Internal Medicine
DX: R91.1 Solitary pulmonary nodule (principal); I12.9 Hypertensive chronic kidney disease with stage 1 through stage 4 chronic kidney disease, or unspecified chronic kidney disease; N18.31 Chronic kidney disease, stage 3a; J47.9 Bronchiectasis, uncomplicated; R63.4 Abnormal weight loss
CPT/HCPCS: 71260